=== PATIENT | male | born 1995 | race Two or more races ===

== ENCOUNTER 2017-07-10 16:01 | Emergency (ER) | payer OTHER, SELFPAY ==
[2017-07-10 16:01] VITALS: BP 154/82; PULSE 88; RESP 15; TEMP 37.1; BMI 23.9
[2017-07-10 16:22] VITALS: BP 136/83; PULSE 79; RESP 14; O2SAT 97
--- NOTE | 2017-07-10 16:26 | ED.DCSUM_ITS ---
- ER Visit Summary Date of Service: 07/10/17 Chief Complaint: Right leg pain History of Present Illness: The patient is a 21 M with right leg pain on and off for the past 2 months. The pain starts in his right buttock and radiates down his right leg. He has occasional paresthesias in his right leg. Denies any injury or inciting event. Worse when getting up from sitting to standing. Better with massage and stretching. Patient has no other significant medical or surgical history. Physical Examination: Afebrile vital signs unremarkable. Sitting comfortably. No acute distress. Back is nontender. Normal inspection. Patient has pain on palpation in his right buttock and it radiates down his right leg posteriorly. Reflexes are normal and symmetric. Sensation and pulses normal. Strength is normal and symmetric in all groups. Test Results: None indicated Emergency Department Course and Treatment: Patient has sciatica. Treated with Toradol here. He is driving. He was given a prescription for naproxen and Flexeril. Follow-up with primary care. Treatment Plan: As above Disposition: Discharge Impression: 1. Right-sided sciatica This note was generated with [employer] dictation software. It may contain incorrect words, spelling, and punctuation that were not noted in review of the chart prior to signing ED Disposition - Plan for ED Patient: Chief Complaint: Lower Extremity Injury Referrals: Care Physician,No Primary [Primary Care Provider] -
--- NOTE | 2017-07-10 16:27 | ED.DEP ---
ED Disposition - Plan for ED Patient: Chief Complaint: Lower Extremity Injury Instructions: ED Sciatica Prescriptions: Naproxen [Naprosyn] 500 mg PO BID PRN #20 tab Cyclobenzaprine [Flexeril] 10 mg PO TID PRN #20 tab PRN Reason: Muscle Spasm Referrals: Dakota Solano DO [NON-STAFF] -
[2017-07-10] MEDS: Ketorolac 60 MG/2 ML Vial IM (16:35)
[2017-07-10 17:06] VITALS: PULSE 78; RESP 16; O2SAT 98
== END 2017-07-10 17:07 | disposition home or self-care (01) ==
PROVIDERS: Emergency Provider Emergency Medicine; Family Provider Pediatrics; PCP Pediatrics
DX: M54.31 Sciatica, right side (principal)
CPT/HCPCS: 96372; 99282